=== PATIENT | female | born 1985 | race African-American/Black ===

== ENCOUNTER 2017-06-27 10:45 | Emergency (ER) | payer MEDICAID ==
[~2017-06-27] VITALS: Ht 170.2 cm; Wt 98.0 kg
[2017-06-27 10:59] VITALS: BP 119/77
--- NOTE | 2017-06-27 11:07 | NUR ---
PT AMBULATED TO ER BED 10
--- NOTE | 2017-06-27 11:10 | NUR ---
PATIENT PRESENTS TO ER WITH COMPLAINTS OF LOWER ABDOMINAL CRAMPING AND A BLOOD CLOT THIS MORNING. DENIES N/V/D; SKIN IS PINK/WARM/DRY; AAOX4 WITH EVEN AND STEADY GAIT; LUNGS CLEAR BL; HR EVEN AND REGULAR; PT DENIES ANY FEVER, CP, SOB, OR COUGH AT THIS TIME; PATIENT STATES PAIN OF 1/10 AT THIS TIME; VSS; PATIENT POSITIONED FOR COMFORT; HOB ELEVATED; BEDRAILS UP X1; BED DOWN. ER MD MADE AWARE OF PT STATUS.
--- NOTE | 2017-06-27 11:43 | NUR ---
PATIENT TAKEN TO ULTRASOUND
[2017-06-27 11:44] LABS: BASOPHILS # (AUTO) 0.1 K/uL (0.00-0.22); BASOPHILS % (AUTO) 0.7 % (0.0-2.0); EOSINOPHILS # (AUTO) 0.2 K/uL (0-0.4); EOSINOPHILS % (AUTO) 1.4 % (0.0-4.0); HEMATOCRIT 39.2 % (36-48); HEMOGLOBIN 12.5 g/dL (12.0-16.0); LYMPHOCYTES # (AUTO) 2.1 K/uL (2.5-16.5); LYMPHOCYTES % (AUTO) 18.5 % (20.5-51.1); MEAN CORPUSCULAR HEMOGLOBIN 25 pg (27-31); MEAN CORPUSCULAR HGB CONC 32 g/dL (33-37); MEAN CORPUSCULAR VOLUME 77.8 fL (80-94); MONOCYTES # (AUTO) 0.7 K/uL (0.8-1.0); MONOCYTES % (AUTO) 6.2 % (1.7-9.3); NEUTROPHILS # (AUTO) 8.5 K/uL (1.8-7.7); NEUTROPHILS % (AUTO) 73.2 % (42.2-75.2); PLATELET COUNT (AUTO) 376 K/uL (140-450); RED BLOOD CELL COUNT(AUTO) 5.03 MIL/uL (4.20-5.40); RED CELL DISTRIBUTION WIDTH 16.6 % (11.6-13.7); WHITE BLOOD COUNT (AUTO) 11.6 K/uL (4.8-10.8)
[2017-06-27 11:46] LABS: APPEARANCE,URINE CLEAR (CLEAR); BILIRUBIN,URINE NEGATIVE (NEGATIVE); BLOOD, URINE NEGATIVE (NEGATIVE); COLOR,URINE YELLOW (YELLOW); LEUKOCYTE ESTERASE ,URINE NEGATIVE (NEGATIVE); NITRITE, URINE NEGATIVE (NEGATIVE); UGLUCOSE NEGATIVE (NEGATIVE)
[2017-06-27 11:55] LABS: RBC,URINE 0-5 (RARE) /HPF (0-5); WBC,URINE 0-5 (RARE) /HPF (0-5)
--- NOTE | 2017-06-27 12:41 | NUR ---
Patient discharged with v/s stable. Written and verbal after care instructions given and explained. Patient verbalized understanding. Ambulatory with steady gait. All questions addressed prior to discharge. Advised to follow up with PMD.
[2017-06-27 12:42] VITALS: BP 108/68
== END 2017-06-27 12:41 | disposition home or self-care (01) ==
LOC: MED 10:45
DX: O20.0 Threatened abortion (principal); Z3A.01 Less than 8 weeks gestation of pregnancy
CPT/HCPCS: 36415; 76801; 81001; 81025; 84702; 85025; 86900; 86901; 99285

== ENCOUNTER 2017-12-28 12:24 | Emergency (ER) | payer MEDICAID ==
[~2017-12-28] VITALS: Ht 172.7 cm; Wt 125.0 kg
[2017-12-28 12:35] VITALS: BP_SYST 121; BP_SYST 133; BP_DIAS 74; BP_DIAS 78
[2017-12-28 13:39] VITALS: BP 125/74
[2017-12-28] MEDS ORDERED: PNV1TABL8 PO (13:41)
[2017-12-28 14:30] VITALS: BP 142/81
[2017-12-28] MEDS ORDERED: NACL 0.9% 1,000 ML IV ONE (14:50)
[2017-12-28] MEDS ORDERED: ONDANSETRON 4 MG/2 ML VIAL IVP ONE (14:55)
[2017-12-28 15:07] LABS: BASOPHILS % (AUTO) 0.3 % (0.0-2.0); EOSINOPHILS % (AUTO) 0.3 % (0.0-4.0); HEMATOCRIT 34.1 % (36-48); HEMOGLOBIN 10.9 g/dL (12.0-16.0); LYMPHOCYTES # (AUTO) 1.1 K/uL (2.5-16.5); LYMPHOCYTES % (AUTO) 11.3 % (20.5-51.1); MEAN CORPUSCULAR HEMOGLOBIN 25 pg (27-31); MEAN CORPUSCULAR HGB CONC 32 g/dL (33-37); MEAN CORPUSCULAR VOLUME 77.8 fL (80-94); MONOCYTES # (AUTO) 0.6 K/uL (0.8-1.0); MONOCYTES % (AUTO) 6.4 % (1.7-9.3); NEUTROPHILS # (AUTO) 7.8 K/uL (1.8-7.7); NEUTROPHILS % (AUTO) 81.7 % (42.2-75.2); PLATELET COUNT (AUTO) 262 K/uL (140-450); RED BLOOD CELL COUNT(AUTO) 4.38 MIL/uL (4.20-5.40); WHITE BLOOD COUNT (AUTO) 9.6 K/uL (4.8-10.8)
[2017-12-28 17:14] LABS: ALBUMIN 2.3 g/dL (3.4-5.0); ANION GAP 13.1 (8-16); CARBON DIOXIDE 24.4 mmol/L (21-32); POTASSIUM 3.5 mmol/L (3.5-5.1); TOTAL BILIRUBIN 0.3 mg/dL (0.0-1.0)
[2017-12-28 17:22] LABS: CREATININE 0.5 mg/dL (0.6-1.3)
[2017-12-28 17:54] VITALS: BP 142/81
== END 2017-12-28 17:52 | disposition home or self-care (01) ==
LOC: MED 12:24 → UNDOADMOB 13:10 → MLD 13:10 → MED 17:52
DX: O99.613 Diseases of the digestive system complicating pregnancy, third trimester (principal); K92.89 Other specified diseases of the digestive system; Z3A.33 33 weeks gestation of pregnancy
CPT/HCPCS: 36415; 80053; 81002; 81025; 85025; 87804; 96361; 96374; 99285; J2405; J7030